=== PATIENT | female | born 1945 | race Caucasian/White ===

== ENCOUNTER → 2020-12-22 06:31 | Outpatient (CLI) | payer MEDICARE, OTHER, SELFPAY ==
[2020-12-03 08:20] VITALS: BMI 32.9
--- NOTE | 2020-12-22 06:33 | ECHODONC_ITS ---
Reason For Study: Chest Pain Procedure This was a 2D Doppler, Color Flow transthoracic echocardiogram. Myocardial strain analysis was performed in this exam to aid in the assessment of cardiac function. Exam performed in department. Left Ventricle Normal LV size. Left ventricular systolic function is normal. The estimated ejection fraction is 60 %. Stage 1 diastolic dysfunction. No regional wall motion abnormalities noted. Right Ventricle Normal RV size. Normal systolic function. Atria Normal left atrium. Normal right atrium. Mitral Valve Normal mitral valve. Tricuspid Valve Normal tricuspid valve. Mild (1+) tricuspid valve insufficiency. Pulmonary artery systolic pressure is 25 mmHg. Aortic Valve Normal aortic valve. Pulmonic Valve Normal pulmonic valve. Great Vessels Normal aortic root. The pulmonary artery is normal size. Normal inferior vena cava. Pericardium/Pleural No pericardial effusion. MMode/2D Measurements & Calculations LVIDd: 4.6 cm IVSd: 1.1 cm Ao root diam: 2.5 cm LVIDs: 3.1 cm LVPWd: 0.99 cm RVDd: 2.7 cm FS: 32.4 % LAV(MOD-bp): 33.5 ml LVAd ap4: 22.0 cm2 SV(MOD-sp4): 35.8 ml LAV(MOD-bp) Indexed: 18.3 ml/m2 EDV(MOD-sp4): 53.4 ml LAV(MOD-sp2): 30.7 ml EDV(sp4-el): 55.2 ml LAV(MOD-sp4): 30.5 ml LVAs ap4: 11.3 cm2 ESV(MOD-sp4): 17.6 ml ESV(sp4-el): 18.1 ml EF(MOD-sp4): 67.0 % EF(sp4-el): 67.3 % SV(sp4-el): 37.2 ml LA A4 area: 14.0 cm2 LA dimension(2D): 3.8 cm RA A4 area: 10.7 cm2 Doppler Measurements & Calculations MV E max bright: 63.0 cm/sec Lat Peak E' Bright: 6.0 cm/sec Med Peak E' Bright: 5.2 cm/sec MV A max bright: 91.3 cm/sec E/E' lat: 10.5 E/E' med: 12.1 MV E/A: 0.69 Ao V2 max: 170.8 cm/sec LV V1 max: 100.4 cm/sec PA V2 max: 89.1 cm/sec Ao max P.7 mmHg LV V1 max P.0 mmHg Ao V2 mean: 121.4 cm/sec Ao mean P.3 mmHg Ao V2 VTI: 35.4 cm TR max bright: 238.4 cm/sec TR max P.7 mmHg Interpretation Summary Normal LV size. Left ventricular systolic function is normal. The estimated ejection fraction is 60 %. Stage 1 diastolic dysfunction. Pulmonary artery systolic pressure is 25 mmHg. The global longitudinal strain is normal. The global longitudinal strain = -20.9 % (normal). Ordering Physician: Raúl Jonas Referring Physician: Mariella Roberts Performed By: Cara Boyce, KATHLEEN, RVT
--- NOTE | 2020-12-22 15:26 | STRESSREP ---
Stress Test Report Pharmacologic myocardial perfusion stress test. 75-year-old lady with a history of chest pain. Stress protocol: Resting EKG demonstrates normal sinus rhythm with a rate of 68 bpm normal intervals are noted resting blood pressure is 148/80 mmHg. 0.4 mg of regadenoson was infused per usual protocol followed by rapid intravenous saline flush injection continuous EKG monitoring was performed. The maximum heart rate attained was 103 bpm which was 70% of max impacted heart rate the maximum workload was 1 metabolic equivalent. At rest there were no ST or T wave changes noted to suggest abnormal flow reserve at peak infusion nonspecific ST-T wave changes were noted with no meet the criteria for ischemia. No clinical angina was noted. The final blood pressure was 148/70 mmHg. 10.8 mCi of technetium 99m sestamibi was injected at rest. 0.4 mg of regadenoson was infused per usual protocol. At peak infusion 33.1 mCi of technetium 99m sestamibi was injected stress images were obtained stress and rest images were reconstructed and compared in the short axis vertical long horizontal long axis. Gated images were also obtained Perfusion SPECT analysis: Review of the stress images demonstrate normal uptake of tracer noted in the septum inferior wall and lateral wall. There is a small portion of the mid anterior wall which has mildly reduced perfusion present. The resting images appear to demonstrate mild improvement suggesting a mild amount of mid anterior ischemia. The rest of the young appear to be normal. Gated SPECT analysis: The gated ejection fraction is 76%. Conclusion: Pharmacologic myocardial perfusion stress test with mild mid anterior ischemia. Preserved ejection fraction.
== END ==
PROVIDERS: PCP Internal Medicine; Referring Provider Internal Medicine Cardiovascular Disease; Visit Provider Internal Medicine Cardiovascular Disease
DX: R07.9 Chest pain, unspecified (principal); I34.0 Nonrheumatic mitral (valve) insufficiency; R06.00 Dyspnea, unspecified; I10 Essential (primary) hypertension; E78.5 Hyperlipidemia, unspecified; C50.912 Malignant neoplasm of unspecified site of left female breast
CPT/HCPCS: 78452; 93017; 93306; 93356; A9500; A4216; J2785

== ENCOUNTER 2021-01-12 06:55 | Day surgery (SDC) | payer MEDICARE, OTHER, SELFPAY ==
[2020-12-03 08:20] VITALS: BMI 32.9
[2021-01-05 10:55] LABS: Absolute Lymphocyte Count 1.85 X10^3/uL (0.83-4.51); Basophil# 0.03 X10^3/uL; Basophil% 0.4 % (0-1); Eosinophils% 1.3 % (0-5); Hematocrit 41.8 % (37-47); Hemoglobin 13.7 g/dL (12.0-15.0); Lymphocyte # 1.85 X10^3/ul (4.0); Lymphocyte % 24.4 % (19-41); Mean Corp Hgb Conc 32.8 g/dL (32-36); Mean Corpuscular Hgb 31.7 pg (27.0-32.0); Mean Corpuscular Volume 96.8 fL (81-99); Mean Platelet Vol. 10.3 fl (6.2-12.0); Monocyte# 0.59 X10^3/uL; Monocyte% 7.8 % (0-10); NRBC Flagged by Analyzer 0 % (0-5); Neutrophil % 65.8 % (47-70); Platelet Count 214 K/mm3 (150-450); RBC Distribution Width CV 11.6 % (11.6-14.6); RBC Distribution Width SD 41.5 fl (35.1-43.9); Red Blood Count 4.32 M/mm3 (4.2-5.4); White Blood Count 7.6 K/mm3 (4.4-11.0)
[2021-01-05 11:13] LABS: Anion Gap 5 (5-15); BUN 14 mg/dL (7-18); BUN/Creat Ratio 16.7 RATIO (10-20); Chloride 107 mmol/L (98-107); Creatinine, Serum 0.84 mg/dL (0.55-1.02); EST Glomerular Filtration Rate 71 mL/min (>60); Est Glom Filt Rate - Afr Amer 85 mL/min (>60); Glucose 90 mg/dL (74-106); Potassium 3.7 mmol/L (3.5-5.1); Sodium Level 141 mmol/L (136-145)
[2021-01-09 07:25] VITALS: BMI 32.9
--- NOTE | 2021-01-12 09:01 | CL.D_ITS ---
Patient Name: HAFSA HUERTA Study Date: 01/12/2021 Performing: Raúl Jonas MD Ht: 61.81 inches 157 cm : 1945 Wt: 180.78 lbs 82 kg Age: 75 Gender: female BSA: 1.83 PROCEDURE(S) PERFORMED QG22-FCD/COR/LV CLINICAL PROFILE AND INDICATIONS Indications: Suspected CAD Heart Failure: None Stress/Imaging Date: 12/22/20ress Test with SPECT MPI: Positive Intermediate Risk CAD Presentations: Stable angina. CONCLUSIONS No obstructive high-grade stenosis noted. Tapering of LAD present. Above likely secondary to radiat ion. RECOMMENDATIONS Medical therapy DESCRIPTION OF PROCEDURE The patient arrived to the procedure lab. The risks and benefits of the procedure as well as a full d escription of our services here and current unavailability of surgical backup were fully explained to the patient and/or their significant other prior to the catheterization. The Timeout was completed, verifying the correct patient and procedure. The patient's procedural site was prepped and draped in the usual fashion. Local anesthetic was given subcutaneously to right radial region with Lidocaine 2% . Using a modified Seldinger technique, arterial access was obtained via the right radial artery, a 6 Fr sheath was inserted. Left Coronary Artery selective angiography was performed in multiple views u sing a 5 Fr. 4.0 [place] catheter. Right Coronary Artery selective angiography was then performed in mu ltiple views using a 5 Fr. 4.0 [place] catheter. Left Ventriculography was performed in BLAKE projection using a 5 Fr. Pigtail catheter. LV to AO pullback pressures were then recorded.The arterial sheath was pulled and a TR Band was applied for hemostasis w/ 18ml air CORONARY ANGIOGRAPHY DOMINANCE: Right Dominant LEFT HEART ASSESSMENT Left Ventricular Ejection Fraction: by LV Gram 60 % Normal LV wall motion Normal Left Ventricular systolic function LEFT MAIN: Angiographically normal LEFT ANTERIOR DESCENDING ARTERY: PROX LAD: Non-obstructive DISTAL LAD: tapering to small vessel with no focal stenosis CIRCUMFLEX ARTERY: No significant disease noted RIGHT CORONARY ARTERY: No significant disease noted COMPLICATIONS No Complications PROCEDURE MEDICATIONS Versed 1 mg IV Fentanyl 50 mcg IV Versed 1 mg IV Oxygen: 2 L/min via nasal cannula Heparin diluted in 23cc Heparinized saline. Patient given 10cc IA of this solution. 01/12/2021 08:29: 18 Verapamil 2.5mg, Ntg 100mcgs, 2000 units of Heparin diluted in 23cc Heparinized saline. Patient give n 10cc IA of this solution. 01/12/2021 08:29:18 SUMMARY OF HEMODYNAMIC DATA Time AIR REST ECG 07:13:23 AO 131/62 (93) SA 08:37:55 LV 127/9, 15 08:45:35 LV 128/9, 16 08:45:42 Signed By Raúl Jonas MD On 01/12/2021 9:00:34 AM Raúl Jonas MD
== END 2021-01-12 10:30 | disposition home or self-care (01) ==
LOC: CLSP 06:56
PROVIDERS: PCP Internal Medicine; Referring Provider Internal Medicine Cardiovascular Disease; Visit Provider Internal Medicine Cardiovascular Disease
DX: I25.118 Atherosclerotic heart disease of native coronary artery with other forms of angina pectoris (principal); I10 Essential (primary) hypertension; E78.5 Hyperlipidemia, unspecified; Z79.899 Other long term (current) drug therapy; Z79.02 Long term (current) use of antithrombotics/antiplatelets; Z79.82 Long term (current) use of aspirin; Z85.3 Personal history of malignant neoplasm of breast; Z92.3 Personal history of irradiation; Z92.21 Personal history of antineoplastic chemotherapy; E66.9 Obesity, unspecified; J45.909 Unspecified asthma, uncomplicated; R73.03 Prediabetes; E55.9 Vitamin D deficiency, unspecified; Z68.32 Body mass index [BMI] 32.0-32.9, adult
CPT/HCPCS: 36415; 80048; 85025; 93458; 99152; 99153; J7040; Q9967; C1769; C1894